=== PATIENT | female | born 1980 | race Caucasian/White ===

== ENCOUNTER 2021-10-13 16:16 | Emergency (ER) | payer OTHER, SELFPAY ==
[2021-10-13 16:24] VITALS: BP 214/103; PULSE 102; RESP 20; TEMP 37.2; O2SAT 100
[2021-10-13 16:30] VITALS: BP 180/90
--- NOTE | 2021-10-13 16:48 | ED.GENADULT ---
HPI - General Adult General Chief complaint: Unspecified Stated complaint: BP high Time Seen by Provider: 10/13/21 16:35 Source: patient Mode of arrival: ambulatory Limitations: no limitations History of Present Illness HPI narrative: Pooja is a 41-year-old female patient who ambulated into the [facility]. Patient states she was at the dental office for tooth extraction earlier and her blood pressure was 200/100. 183/103 with a automatic wrist cuff. In 193/108 with an automatic blood pressure cuff on the arm. Patient states this was the first time at this dentist and the dental assistant food service director told her her blood pressure was life-threatening. Patient has no health history. Patient was seen by her physician less than 6 months ago and had normal blood pressure. Patient has been taking amoxicillin for a broken wisdom tooth. Patient states she was anxious at the dentist it was a first time being there and she was upset that they stated they would not pull her tooth. Patient denies any headaches. Patient denies any blurred vision patient denies any numbness tingling to any of her extremities. MD complaint: anxiety Related Data Allergies Allergy/AdvReac Type Severity Reaction Status Date / Time No Known Drug Allergies Allergy Unknown Verified 03/19/14 18:08 Review of Systems Review of Systems: CONSTITUTIONAL: Denies body aches, fever, chills, or sweats. EYES: Denies visual changes, redness, or discharge. ENT: Denies rhinorrhea, congestion, sore throat, or otalgia. CARDIOVASCULAR: Denies chest pain, palpitations, or edema. RESPIRATORY: Denies cough or dyspnea. GASTROINTESTINAL: Denies abdominal pain, nausea, vomiting, or diarrhea. GENITOURINARY: Denies dysuria or hematuria. SKIN: Denies rash, itching, or wounds. MUSCULOSKELETAL: Denies back pain, joint pain, or myalgia. NEUROLOGIC: Denies headache, numbness, tingling, or weakness. PSYCH: Denies depression o+ anxiety. All systems reviewed & are unremarkable except as noted in HPI and below PMFSH Comments At time of signature, I have reviewed and agree with nursing past medical, surgical, social and family history unless otherwise noted. Please see nursing chart for further information. There is no relevant family history pertinent to the presenting complaint Exam Narrative: GENERAL: Well-appearing, well-nourished, and in no acute distress. HEAD: Normocephalic, atraumatic. EYES: EOMI. No redness or drainage. Conjunctivae normal. ENT: Mucous membranes pink and moist. Nares clear. No rhinorrhea. Uvula midline. NECK: Normal AROM. Supple. CHEST: No respiratory distress. ; Heart RRR no murmur or extra heart sounds MUSCULOSKELETAL: No bony tenderness. EXTREMITIES: Normal range of motion. No edema. SKIN: Warm, dry, no rash. Capillary refill normal. Normal skin turgor. NEURO: No focal deficits. Alert and oriented x3. Gait steady. PSYCH: Normal affect. No signs of depression or anxiety. Course Vital Signs Vital signs: Vital Signs Temperature 37.2 C 10/13/21 16:24 Pulse Rate 102 H 10/13/21 16:24 Respiratory Rate 20 10/13/21 16:24 Blood Pressure 214/103 H 10/13/21 16:24 Pulse Oximetry 100 10/13/21 16:24 Temperature 37.2 C 10/13/21 16:24 Pulse Rate 102 H 10/13/21 16:24 Respiratory Rate 20 10/13/21 16:24 Blood Pressure 180/90 H 10/13/21 16:30 Pulse Oximetry 100 10/13/21 16:24 Reviewed. Pt has been instructed to follow up with her PCP regarding her elevated blood pressure today. Medical Decision Making MDM Narrative Medical decision making narrative: Patient arrived very anxious. Manual blood pressure is 170/100. Patient denies any other symptoms. Patient had a doctor's visit 6 months ago with a normal blood pressure. Patient was instructed to follow-up with her primary care physician in the next week for her blood pressure.. Patient was instructed to go to the ER for any strokelike symptoms. Differential Diagnosis Differential Diagn
== END 2021-10-13 17:10 | disposition home or self-care (01) ==
PROVIDERS: Emergency Provider Nurse Practitioner Family; PCP Hospitalist
DX: I10 Essential (primary) hypertension (principal)
CPT/HCPCS: 99202; G0463

== ENCOUNTER 2025-10-11 08:17 | Emergency (ER) | payer OTHER, SELFPAY ==
[2025-10-11 08:22] VITALS: BP 135/75; PULSE 132; RESP 20; TEMP 37.9; O2SAT 97
--- OUTSIDE RECORDS SUMMARY | 2025-10-11 08:22 | XMS_ITS | Clinical Summary ---
Author Organization [facility] [address] [facility] lto Address [address] [place] [address] Care Team Providers Care Investment Consultant Name Role Phone Dillon Velázquez MD Primary Care Provider [phone] Allergies No known active allergies Medications etonogestreL (Nexplanon) 68 mg implant Nexplanon 68 MG Subcutaneous Implant QTY: 0 Days: 0 Refills: 0 Written: 05/05/20 Patient Instructions: inserted 05/05/20 L arm 0 Active lisinopriL (PRINIVIL,ZESTR IL) 40 mg tablet TAKE 1 TABLET(40 MG) BY MOUTH DAILY 90 tablet 3 3 Active amLODIPine (NORVASC) 5 mg tablet TAKE 1 TABLET(5 MG) BY MOUTH DAILY 90 tablet 3 3 Active Active Problems Problem Noted Date Diagnosed Date Jittery feeling 08/20/2022 Assessment & Plan (08/20/2022 10:20 AM ACQUISITIONS LIBRARIAN): Unclear etiology; patient reports difficulty with focus and generally; patient reports no caffeine intake, symptoms improved within 35-45 minutes, occurs about once per month Patient notes no other symptoms such as tachycardia or diarrhea Continue monitor, determine best testing to better characterize cause of symptoms RJ (obstructive sleep apnea) 11/29/2021 Assessment & Plan (12/07/2022 4:44 PM ACQUISITIONS LIBRARIAN): Stable, well controlled, continues to use CPAP regularly; no daytime sleepiness, headaches resolved Hypertension, essential 11/03/2021 Assessment & Plan (12/07/2022 4:44 PM ACQUISITIONS LIBRARIAN): Stable, well controlled; blood pressure at target; no chest pain or headaches, no episodes orthostatics since dose adjustment Continue lisinopril 40 mg daily, amlodipine 5 mg daily Assessment & Plan (08/20/2022 10:18 AM ACQUISITIONS LIBRARIAN): Stable, well controlled; blood pressure target with no orthostatics Continue lisinopril 40 mg daily, amlodipine 5 mg daily Assessment & Plan (02/01/2022 3:51 PM CDT): Stable, well controlled; blood pressure is at target, well controlled Patient reports no episodes of chest pain, headaches or orthostatics Continue amlodipine 10 mg daily, lisinopril 40 mg daily Assessment & Plan (11/03/2021 1:49 PM ACQUISITIONS LIBRARIAN): Stable, well controlled today; patient bp at target Plan: -continue with home monitoring; weekly checks while at store with bp cuff -continue amlodipine 10 mg, lisinopril 40 mg Left-sided chest pain 07/06/2021 Assessment & Plan (08/20/2022 10:19 AM ACQUISITIONS LIBRARIAN): Stabbing pain in nature; last for very short period, less than 1 minute, occurs with deep breaths in Low concern for cardiac source Assessment & Plan (07/06/2021 2:59 PM CDT): Inconsistent pain, dull aching radiating to back; mostly due to pressure on left side of chest; never occurs with activity Will continue to monitor, if pain continues, becomes more concerning or occurs with activity will get stress testing or further workup for cardiac source; at this time likely mechanical causes of chest pain Class 2 obesity due to exces s calories without serious comorbidity with body mass index (BMI) of 37.0 to 37.9 in adult 06/08/2021 Assessment & Plan (12/07/2022 4:44 PM ACQUISITIONS LIBRARIAN): Weight is stable from prior; patient reports previous weight loss, but recently loosen dietary restrictions and decreased exercise Patient returning to regular eating habits, no longer eating out or fast foods; generally eats healthy well around diet Patient targeting walking most days per week Assessment & Plan (08/20/2022 10:19 AM ACQUISITIONS LIBRARIAN): Stable, improving; continues to work on weight loss Encouraged dietary and activity changes for weight loss Assessment & Plan (02/01/2022 3:52 PM CDT): Stable, improving; patient has lost about 5 lb, the reports she has not had a plateau Patient has been a 0358-8011 calorie diet As patient difficulties with highly restrictive diets Encouraged patient to target sodium 1182-0729 calories per day Continue with regular exercise 7 days per week Will continue to follow-up patient evaluated patient would benefit from medical therapies if no improvement with dietary changes Assessment & Plan (11/03/2021 1:50 PM ACQUISITIONS LIBRARIAN): Discussed impotance of weight loss on blood pressure as well as other health risks. -continue with dietary changes; reducing fast food and high calorie food intake -continue with regular exercise, goal of 30 minutes of moderate intensity exercise 5 days per week Assessment & Plan (07/06/2021 2:58 PM CDT): Weight is stable, has decreased activity due to heat; has been playing golf and maintaining ordered work Encourage patient to continue with dietary changes and reduce portion sizes and avoid high-calorie foods such as sugars sweetened drinks Immunizations Immunization Administration Dates Next Due Influenza LAIV (Nasal) 12/07/2022(Deferred: Claudia ent Refused) Influenza, Unspecified 11/03/2021(Deferr ed: Patient Refused),10/20/2021(Deferred: Patient Refused),07/15/2021(Deferred: Patient Refused),06/08/2021(Deferred: Patient Refused),10/15/2020(Deferred: Patient Refused),10/15/2020(Deferred: Patient Refused),10/15/2020(Deferred: Patient Refused),07/15/2020(Deferred: Patient Refused),10/15/2019(Deferred: Patient Refused),10/15/2019(Deferred: Patient Refused) Pfizer SARS-CoV-2 Monovalent Vaccination (12+ Yrs) PURPLE 05/18/2021,02/01/2021 Surgical History Surgery Date Site/Laterality Comments NO PAST SURGERIES Medical History Medical History Date Comments Smoking Hypertension Family History Relation Name Status Comments Father Alive Mother Alive Social History Tobacco Use Types Packs/Day Years Used Date Smoking Tobacco: Former Cigarettes Q uit: 10/16/2021 Smokeless Tobacco: Never Tobacco Cessation:Counseling Given: No AUDIT-C Answer Date Recorded Q1: How often do you have a drink containing alc ohol? Never 12/07/2022 Average Number of Drinks Not on file 023 Frequency of Binge Drinking Not on file 11/16 PHQ-2 Answer Date Recorded PHQ-2 Total Score (If total score is 3 or more points, staff should administer the PHQ-9) 0 12/07/2022 Personal Safety Answer Date Recorded Getting School Help Needed Not on file 10/14 Comments No Sex and Gender Information Value Date Recorded Sex Assigned at Not on file Legal Sex Female 2:17 PM ACQUISITIONS LIBRARIAN Gender Identity Not on file Sexual Orientation Not on file Obstetrics History Para Term AB IAB SAB Ectopic Multiple Livin g Live Births 3 2 2 Date Outcome GA Total Labor Labor/2nd/3rd Weight Sex Type Anes PTL Chelsea A1 A5 Name Clin Term Term Last Filed Vital Signs Vital Sign Reading Time Taken Comments Blood Pressure 117/81 04/02/2023 2:10 PM CDT Pulse 79 04/02/2023 2:10 PM CDT Temperature 36.8 C (98.3 F) 12/07/2022 2:22 PM ACQUISITIONS LIBRARIAN Respiratory Rate 16 12/07/2022 2:22 PM ACQUISITIONS LIBRARIAN Oxygen Saturation 96% 04/02/2023 2:10 PM CDT Inhaled Oxygen Concentration - - Weight 91.4 kg (201 lb 9.6 oz) 04/02/2023 2:10 P M CDT Height 152.4 cm (5') 04/02/2023 2:10 PM CDT Body Mass Index 39.37 04/02/2023 2:10 PM CDT Plan of Treatment Health Maintenance Due Date Last Done Comments Cervical Cancer Screening 1979 Colon Cancer Screening-Colonoscopy 1979 Hepatitis C Screening 1979 Hepatitis B Screening 1997 Regular Well Visit/Exam 18-64 03/10/2022 03/10/2021 DTaP/Tdap/Td Vaccine (2 - Td or Tdap) 05/20/2022 05/20/2012 Depression Screening 12/07/2023 12/07/2022, 08/03/2022, 02/01/2022, Additional history exists Breast Cancer Screening-Mammogram 07/04/2024 07/04/2023, 07/03/2022, 06/30/2021 Covid-19 Vaccine (3 - season) 2025 05/18/2021, 02/01/2021 Influenza Vaccine (#1) 2025 HPV Vaccines Aged Out No longer eligi ble based on patient's age to complete this topic Pneumococcal vaccine <65 Aged Out No longer eligible based on patient's age to complete this topic Procedures Procedure Name Priority Date/Time Associated Diagnosis Comments SCREENING MAMMOGRAM BILATERAL W HERIBERTO Schedule Routine, Read Routine (OP Routine) 07/04/2023 1:31 PM CDT Encounter for screening mammogram for malignant neoplasm of breast from Last 3 Months or Most Recently Relevant to Health Maintenance Results * Screening Mammogram Bilateral W Heriberto (07/04/2023 1:31 PM CDT) Anatomical Region Laterality Modality Breast Bilateral Mammography 07/04/2023 2:09 PM CDT Impressions 07/04/2023 2:09 PM CDT There is no mammographic evidence of malignancy. A 1 year screening mammogram is recommended. BI-RADS: 1 - Negative. The patient has been or will be contacted. The patient will be entered into a reminder system with a target due date of 1 year for her next mammogram. Electronically signed by: Regina Ramon M.D. Narrative 07/04/2023 2:09 PM CDT EXAMINATION: SCREENING MAMMOGRAM BILATERAL W HERIBERTO ORDERING HEALTHCARE PROVIDER: YUNI LEA HISTORY: Routine screening mammography. COMPARISON: 07/03/2022, 06/30/2021, 03/25/2020 TECHNIQUE: CC and MLO views of the bilateral breasts were obtained with digital technique using breast tomosynthesis with C view. Computer aided detection was utilized. FINDINGS: DENSITY: There are scattered fibroglandular elements in the bilateral breasts. BREASTS: There are no suspicious masses, suspicious calcifications, or other suspicious findings in either breast. There has been no suspicious interval change. Yuni Lea ASSISTANT SECRETARY IMG MAMMO PROCEDURES Final Res ult from Last 3 Months or Most Recently Relevant to Health Maintenance Insurance [facility] Care Teams Investment Consultant Relationship Specialty Start Date End Date Dillon Veláz[place] [address] PCP - General Family Medicine 03/10/21
--- OUTSIDE RECORDS SUMMARY | 2025-10-11 08:22 | XMS_ITS | Data Portability ---
[facility] Address [address] [place] [address] Care Team Providers Care Nurse Transitional Name Role Phone JENNIFER CHAVEZ Primary Care Provider Assessment No assessment recorded. Plan of Treatment Reminders Order Date Submit Date Provider Last Modified By Organization Details Last Modified Time Details Appointments None recorded. Lab CBC 2024 025 [email or web address] [facility], [address] [place] [address], [place], [address], 5 10:13:36 CMP, serum or plasma 2024 025 [email or web address] [facility], [address] [place] [address], [place], [address], 5 10:13:36 lipid panel, serum 2024 025 [email or web address] [facility], [address] [place] [address], [place], [address], 5 10:13:36 HbA1c (hemoglobi n A1c), blood 2024 025 [email or web address] In-Office Order, Internal Use Only DO Not Attach Compendium DO Not Attach Compendium, Do Not Delete/merge, [id number] 5 15:03:45 rapid strep group A, throat 2023 024 [email or web address] In-Office Order, Internal Use Only DO Not Attach Compendium DO Not Attach Compendium, Do Not Delete/merge, [id number] 4 16:36:03 CBC 2023 024 [facility], [address] [place] [address] 2, [place], [address], 4 17:10:00 CMP, serum or plasma 2023 024 [facility], [address] [place] [address] 2, [place], [address], 4 17:09:58 lipid panel, serum 2023 024 [facility], [address] [place] [address] 2, [place], [address], 4 17:09:58 HbA1c (hemoglobi n A1c), blood 2023 024 [facility], [address] [place] [address] 2, [place], [address], 4 17:09:59 Referral None recorded. Procedures None recorded. Surgeries None recorded. Imaging None recorded. Medication Orders amlodipine 5 mg tablet 2024 025 [id number], [address], [place], [place], [id number], 5 14:52:38 lisinopril 40 mg tablet 2024 025 [facility], [address], [place], [place], [id number], 5 14:52:38 lisinopril 40 mg tablet 2023 024 [id number], [address], [place], [place], [id number], 4 15:19:33 amoxicilli n 875 mg tablet 2023 024 [id number], [address], [place], [place], [id number], 15:06:11 Patient TargetsNo targets recorded. Patient Instructions Encounter Date Encounter Id Patient Instructions Last Modified By Organization Details Last Modified Time 06/11/2024 [id number] sore throat: car e instructions jnanney Not available 06/11/2024 16:36:03 A healthy lifestyle: care instructions jnanney Not available 06/11/2024 16:36:26 learning about high blood pressure jnanney Not available 06/11/2024 16:40:24 10/06/2024 [id number] When You Want to Lose Weight: Care Instructions [email or web address] Not available 10/06/2024 15:19:25 04/30/2025 [id number] A healthy lifestyle: care instructions anney Not available 04/30/2025 14:52:33 Reason for Referral None Reported. Results Created Date Observation Date Name Description Value Unit Range Abnormal Flag Note LastModifiedBy Organization Detail LastModifiedTime 06/11/2006/13/2024 SPECI MEN STATU S REPOR T specimen status report TNP Test not perfo rmed. No laven adriana top tube submi tted. TEST: [id number] 2 CBC, Plate [place], [place] [id number] 3 Hemog lobin A1c Not Available [facility] & [address], [address], 06/13/2024 17:09:57 06/11/2006/13/2024 LIPID PANEL cholesterol, total 239 mg/dL 100-19 9 above high normal Not Available [facility] & [address], [address], 06/13/2024 17:09:57 06/11/2006/13/2024 LIPID PANEL triglyceride s 246 mg/dL 0-149 above high normal Not Available [address], [address], 06/13/2024 17:09:57 06/11/20 24 06/13/2024 LIPID PANEL HDL cholesterol 44 mg/dL >39 Not Available [address], [address], 06/13/2024 17:09:57 06/11/20 24 06/13/2024 LIPID PANEL VLDL cholesterol jonah 45 mg/dL 5-40 above high normal Not Available [address], [address], 06/13/2024 17:09:57 06/11/20 24 06/13/2024 LIPID PANEL LDL chol calc (nih) 150 mg/dL 0-99 above high normal Not Available [address], [address], 06/13/2024 17:09:57 06/11/20 24 06/13/2024 COMP. METAB OLIC PANEL (14) glucose 103 mg/dL 70-99 above high normal Not Available [address], [address], 06/13/2024 17:09:58 06/11/20 24 06/13/2024 COMP. METAB OLIC PANEL (14) BUN 13 mg/dL 6-24 Not Available [address], [address], 06/13/2024 17:09:58 06/11/20 24 06/13/2024 COMP. METAB OLIC PANEL (14) creatinine 0.94 mg/dL 0.57-1 .00 Not Available [address], [address], 06/13/2024 17:09:58 06/11/20 24 06/13/2024 COMP. METAB OLIC PANEL (14) eGFR 76 mL/mi n/1.7 3 >59 Not Available [address], [address], 06/13/2024 17:09:58 06/11/20 24 06/13/2024 COMP. METAB OLIC PANEL (14) BUN/creatini ne ratio 14 9-23 Not Available [address], [address], 06/13/2024 17:09:58 06/11/20 24 06/13/2024 COMP. METAB OLIC PANEL (14) sodium 137 mmol/ L 134-14 4 Not Available [address], [address], 06/13/2024 17:09:58 06/11/20 24 06/13/2024 COMP. METAB OLIC PANEL (14) potassium 4.5 mmol/ L 3.5-5. 2 Not Available [address], [address], 06/13/2024 17:09:58 06/11/20 24 06/13/2024 COMP. METAB OLIC PANEL (14) chloride 101 mmol/ L 96-106 Not Available [address], [address], 06/13/2024 17:09:58 06/11/20 24 06/13/2024 COMP. METAB OLIC PANEL (14) carbon dioxide, total 22 mmol/ L 20-29 Not Available [address], [address], 06/13/2024 17:09:58 06/11/20 24 06/13/2024 COMP. METAB OLIC PANEL (14) calcium 10.1 mg/dL 8.7-10 .2 Not Available [address], [address], 06/13/2024 17:09:58 06/11/20 24 06/13/2024 COMP. METAB OLIC PANEL (14) protein, total 8.0 g/dL 6.0-8. 5 Not Available [address], [address], 06/13/2024 17:09:58 06/11/20 24 06/13/2024 COMP. METAB OLIC PANEL (14) albumin 4.6 g/dL 3.9-4. 9 Not Available [address], [address], 06/13/2024 17:09:58 06/11/20 24 06/13/2024 COMP. METAB OLIC PANEL (14) globulin, total 3.4 g/dL 1.5-4. 5 Not Available [address], [address], 06/13/2024 17:09:58 06/11/20 24 06/13/2024 COMP. METAB OLIC PANEL (14) bilirubin, total 0.2 mg/dL 0.0-1. 2 Not Available [address], [address], 06/13/2024 17:09:58 06/11/20 24 06/13/2024 COMP. METAB OLIC PANEL (14) alkaline phosphatase 71 IU/L 44-121 Not Available [address], [address], 06/13/2024 17:09:58 06/11/20 24 06/13/2024 COMP. METAB OLIC PANEL (14) AST (SGOT) 20 IU/L 0-40 Not Available [address], [address], 06/13/2024 17:09:58 06/11/20 24 06/13/2024 COMP. METAB OLIC PANEL (14) ALT (SGPT) 19 IU/L 0-32 Not Available [address] [place], [address], 06/13/2024 17:09:58 06/11/20 24 06/13/2024 CARDI OVASC ULAR REPOR T interpretati on Note Medic al Dire tor's Note: Hemog lobin A1C-- TNP. Test not perfo rmed. No laven adriana top tube submi tted. Predi abete s: 5.7 - 6.4 Diabe peri: >6.4 Glyce zoraida contr ol for adult s with diabe peri: <7.0 Medic al Direc tor's Note: Speci men Statu s Repor t: TNP. Test not perfo rmed. No laven adriana top tube submi tted. TEST: [id number] 2 CBC, Plate let, [place] [address] 3 Hemog lobin A1c Suppl ement al repor t is avail able. Not Available [address], [address], 06/13/2024 17:09:59 06/11/20 24 06/13/2024 CARDI OVASC ULAR REPOR T pdf . Not Available [facility] & [address], [address], 06/13/2024 17:09:59 06/11/20 24 06/13/2024 HEMOG LOBIN A1C hemoglobin A1C - % Test not perfo rmed. No laven adriana top tube submi tted. Predi abete s: 5.7 - 6.4 Diabe peri: >6.4 Glyce zoraida contr ol for adult s with diabe peri: <7.0 Not Available [address], [address], 06/13/2024 17:09:59 06/11/20 24 06/13/2024 CBC, PLATE LET, NO DIFFE RENTI AL WBC - x10e3 /uL Test not perfo rmed. No laven adriana top tube submi tted. Not Available [facility] & [address], [address], 06/13/2024 17:10:00 06/11/20 24 06/13/2024 CBC, PLATE LET, NO DIFFE RENTI AL RBC - Test not perfo rmed Not Available [address], [address], 06/13/2024 17:10:00 06/11/2006/13/2024 CBC, PLATE LET, NO DIFFE RENTI AL hemoglobin - Test not perfo rmed Not Available [address], [address], 06/13/2024 17:10:00 06/11/20 24 06/13/2024 CBC, PLATE LET, NO DIFFE RENTI AL hematocrit - Test not perfo rmed Not Available [address], [address], 06/13/2024 17:10:00 06/11/20 24 06/13/2024 CBC, PLATE LET, NO DIFFE RENTI AL platelets - Test not perfo rmed Not Available [address], [address], 06/13/2024 17:10:00 06/11/20 24 06/13/2024 CBC, PLATE LET, NO DIFFE RENTI AL NRBC TNP % Test not perfo rmed. No laven adriana top tube submi tted. Not Available [address], [address], 06/13/2024 17:10:00 06/11/2006/11/2024 rapid strep group A, throa t Strep positi ve Not Available In-Office Order Internal Use Only DO Not Attach Compendium DO Not Attach Compendium, Do Not Delete/merge, [id number] 06/11/2024 16:24:51 04/30/20 25 04/30/2025 HbA1c (hemo globi n A1c), blood HbA1C 5.2 % Not Available In-Office Order Internal Use Only DO Not Attach Compendium DO Not Attach Compendium, Do Not Delete/merge, [id number] 04/30/2025 14:51:16 Result Notes None recorded. Medical Equipment None Reported. Allergies No known drug allergies Medications Name Sig Start Date Stop Date Status Note LastModified by Organization Details LastModified Time amlodipine 5 mg tablet Take 1 tablet every day by oral route for 90 days. 2024 active Not Available Not Available Not Avai lable amoxicillin 875 mg tablet TAKE 1 TABLET BY MOUTH EVERY 12 HOURS FOR 20 DAYS 10/06 completed Not Available Not Available Not Available lisinopril 40 mg tablet Take 1 tablet every day by oral route. 2024 active Not Available Not Available Not Avai lable Vitals Date Recorded Body height Body mass index (BMI) Body weight Oxygen saturation Heart rate Systolic And Diastolic Provider Name and Address Organization Details Last Updated DateTime 5 154.94 cm 37.4 kg/m2 18965.2 9 g 98 % 109 /min 119/80 mm[Hg] Laurel Hudson MA [facility] 5 14:21:56 Date Recorded Body weight Body mass index (BMI) Body height Oxygen saturation Heart rate Systolic And Diastolic Provider Name and Address Organization Details Last Updated DateTime 4 89850.7 4 g 36.3 kg/m2 154.94 cm 98 % 107 /min 124/91 mm[Hg] Carly Pereira MA [facility] 4 16:26:26 Date Recorded Body height Body mass index (BMI) Body weight Oxygen saturation Heart rate Systolic And Diastolic Provider Name and Address Organization Details Last Updated DateTime 4 154.94 cm 37 kg/m2 46166.1 g 99 % 87 /min 129/84 mm[Hg] Carly Pereira MA [facility] 4 15:07:25 Social History Question Answer Notes LastModified by Organizat ion Details LastModified Time Tobacco Smoking Status Former Smoker Carly Pereira MA null, [facility] 06/11/2024 16:23:21 Are You Blind Or Do You Have Difficulty Seeing? Yes Has Glasses Information not available 06/11/2024 What Is Your Level Of Caffeine Consumption? Moderate Information not available 06/11/2024 Are You Deaf Or Do You Have Serious Difficulty Hearing? No Information not available 06/11/2024 What Type Of Diet Are You Following? SPECIFIC Information not available 06/11/2024 Are There Any Guns Present In Your Home? No Information not available 06/11/2024 What Was The Date Of Your Most Recent Tobacco Screening? 04/30/2025 [email or web address] Information not available 04/30/2025 How Many Children Do You Have? 2 Information not available 06/11/2024 What Is Your Current Pack Years? 10-19packyea rs Information not available 06/11/2024 What Is Your Relationship Status? Information not available 06/11/2024 Do You Use Your Seat Belt Or Car Seat Routinely? Yes Information not available 06/11/2024 Do You Have Smoke And Carbon Monoxide Detectors In Your Home? Yes Information not available 06/11/2024 Are You Passively Exposed To Smoke? No Information not available 06/11/2024 How Much Tobacco Do You Smoke? 1 PPD Information not available 06/11/2024 Do You Use Sunscreen Routinely? Yes Information not available 06/11/2024 Has Tobacco Cessation Counseling Been Provided? No Information not available 06/11/2024 How Many Years Have You Smoked Tobacco? 15 Information not available 06/11/2024 Sex: Female Functional Status Question Answer Note LastModified by Organizat ion Details LastModified Time Do you use any illicit or recreational drugs? No Information not available 06/11/2024 Do you or have you ever used any other forms of tobacco or nicotine? No Information not available 06/11/2024 What is your level of alcohol consumption? None Information not available 06/11/2024 Are you currently employed? Yes Information not available 06/11/2024 Are you able to care for yourself independently? Yes Information not available 06/11/2024 What is your occupation? [employer] Information not available 06/11/2024 What is your exercise level? Moderate Information not available 06/11/2024 Mental Status Question Answer Note LastModified by Organization D etails LastModified Time Do you feel stressed (tense, restless, nervous, or anxious, or unable to sleep at night)? [id number] Information not available 06/11/2024 Family History Relationship Description Onset Age of this Age Resolved Age Notes LastModified by Organization Details LastModified Time Mother Hypertensive disorder [email or web address] Not available 2023 16:22:37 Father Hypertensive disorder kclarkma Not available 2023 16:22:40 Medical History Condition Response Coronary Artery Disease N Other N Atrial Fibrillation N High Blood Pressure N Thyroid Problems N Kidney or Bladder Problems N GI Problems N Depression N COPD N Blood Clots N Have you had a mammogram in the last yea r? N Eating Disorder N Skin Problems N Anemia N Heart Attack (MT) N Diabetes N Anxiety Disorder N Muscle, Joint, or Bone Problems N Seizures/Epilepsy N Have you had a colonoscopy in the last 1 0 years? N Arthritis N Acid Reflux (GERD) N Cancer N Stroke N Asthma N Allergies N Have you had a PSA blood test in the las t year? N ADHD N Substance Abuse N High Cholesterol N Hepatitis N Liver Disease N Schizophrenia N Headaches N Osteoporosis N Heart Failure N Gynecological History Statement/Question Response Menses Monthly Y Current Control Method Implant Flow Light Date of Last Mammogram Date of LMP Obstetrics History GPAL:G 2 P 2 0 0 0 Type Value Full Term 2 Total 2 Immunizations Vaccine Type Date Status Note Provider Nam e and Address Organization Details Recorded Time Tdap 05/20/2012 completed Not Available [facility] 04/30/2025 14:15:38 COVID-19, mRNA, LNP-S, PF, 30 mcg/0.3 mL dose 02/01/2021 completed Not Available [facility] 14:15:38 COVID-19, mRNA, LNP-S, PF, 30 mcg/0.3 mL dose 05/18/2021 completed Not Available [facility] 14:15:38 Past Encounters Encounter ID Performer Location Encounter Start Date Encounter Closed Date Diagnosis/Indication Diagnosis SNOMED-CT Code Diagnosis ICD10 Code Diagnosis IMO Codes Diagnosis Note [id number] ESTRADA Laws [address] [place] [address] 06/11/2024 16:09:25 06/13/2024 09:12:43 Sore throat 744576139 J02.9 Streptococ jonah sore throat 53773009 J02.0 Overweight 258987997 E66 .3 Essential hypertension 59201802 I10 [id number] Boni Tian MD [facility] [address] [place] [address] 10/06/2024 14:58:12 10/07/2024 09:55:11 Essential hypertension 30978109 I10 Mixed hyperlipidemia 267 882001 E78.2 Overweight 006119010 E66 .3 [id number] Boni Tian MD [facility] [address] [place] [address] 04/30/2025 14:13:44 05/01/2025 07:20:25 Essential hypertension 72994832 I10 18823 Obese class II 048995157 1 [address]194 E66.812 [id number] Health Concerns Section Related Observation LastModified by Organization Detai ls LastModified Time None Recorded Concern Status LastModified by Organization Details LastModified Time None Recorded Advance Directives Directive None Recorded Payers Insurance Date Sequence Insurance Name Policy Number Policy Simons Covered Member ID Simons Member ID Guarantor Name 04/30/2025 1 [facility] [place] Pooja Fajardo [id number] Pooja Fajardo Notes Date Note Type Note Provider Name and Address Organization Details Recorded Time 06/11/2024 text/html ROS as noted in the HPI was not feeling well..sore throat...not horrible but not right...also she has self reduced lisinopril from 40 to 20..no longer as active...no longer on amlodipine..is actively trying to lose weight... Jennifer Chavez PA-C Attn: Accounting,[address] [place], [address], [facility] 06/11/2024 16:41:43 10/06/2024 text/html ROS as noted in the HPI Htn...here to discuss labs..was on amlodipine along with lisinopril and she stopped amlodipine due to pressure being so good.. Jennifer Chavez PA-C Attn: Accounting,[address] [facility], [place], [address], [facility] 10/06/2024 15:20:39 04/30/2025 text/html ROS as noted in the HPI needs refills...also needs labs but wants to go out for it...discussed lipids...wants to see what this lab shows level...concerned with her weight..says she peaks and valleys alot... Jennifer Chavez PA-C Attn: Accounting,[address] [facility], [place], [address], [facility] 04/30/2025 14:54:27 OBGyn Episode No OBEpisode recorded.
--- NOTE | 2025-10-11 08:58 | ED.URI ---
HPI - URI/Sore Throat General Chief Complaint: Upper Respiratory Infection Stated Complaint: cough/throat/fever Time Seen by Provider: 10/11/25 08:45 Source: patient and RN notes reviewed Mode of arrival: ambulatory Limitations: no limitations History of Present Illness HPI Narrative: 45-year-old female presents Express Care complaining of upper respiratory symptoms for 2-3 days. Patient reports sore throat, cough, fevers, mild congestion. Patient reports a dry nonproductive cough. Patient denies any other upper respiratory symptoms, body ache,, chills, nausea vomiting, diarrhea, chest pain, difficulty breathing, any other symptoms. Patient reports her sore throat very painful reports of being is 7/10 currently. Patient denies any significant past medical problems other than hypertension. Related Data Home Medications ?Medication ?Instructions ?Recorded ?Confirmed ?Last Taken ?Type amlodipine 5 mg tablet mg 10/11/25 Unknown History etonogestrel subdermal 10/11/25 Unknown History lisinopril 40 mg tablet mg 10/11/25 Unknown History Allergies Allergy/AdvReac Type Severity Reaction Status Date / Time No Known Drug Allergies Allergy Unknown Unknown Verified 10/11/25 08:35 Review of Systems Review of Systems: CONSTITUTIONAL: Positive for fevers. Negative for body aches, chills, or sweats. EYES: Denies visual changes, redness, or discharge. ENT: Denies rhinorrhea, or otalgia. Positive for congestion and sore throat. CARDIOVASCULAR: Denies chest pain, palpitations, or edema. RESPIRATORY: Positive for cough. Negative for wheezing or Dyspnea. GASTROINTESTINAL: Denies abdominal pain, nausea, vomiting, or diarrhea. GENITOURINARY: Denies dysuria or hematuria. SKIN: Denies rash or itching. MUSCULOSKELETAL: Denies back pain, joint pain, or myalgia. NEUROLOGIC: Denies headache, numbness, or weakness. PSYCHIATRIC: Denies anxiety or depression. All other systems reviewed are negative, except as documented in HPI. PMFSH Comments At the time of my signature, I reviewed and agree with the nursing past medical, surgical, social, and family history. There is no relevant family history pertinent to the patient complaint. Exam Narrative: GENERAL: This is a well-nourished, well-developed adult, in no apparent distress. They are non ill-appearing, nontoxic appearing. HEAD: normocephalic, atraumatic. EYES: Sclera clear/white. Conjunctiva normal. Vision is grossly intact. Extraocular movements intact EARS: External ears normal, auditory canals clear and without drainage, TMs normal without perforation. Hearing grossly intact. NOSE: External nose normal with no obvious nasal discharge, nasal turbinates with erythema, no swelling, no rhinorrhea. THROAT: Mucous membranes moist, posterior pharynx erythematous. PND present. Uvula midline. NECK: Neck supple, mild tender cervical lymphadenopathy, no masses or thyromegaly. CARDIOVASCULAR: Regular rate and rhythm without murmurs, gallops, or rubs. RESPIRATORY: Clear to auscultation. Breath sounds equal bilaterally. No wheezes, rales, or rhonchi. SKIN: warm, Dry, intact with no suspicious lesions or rash, good texture and turgor. NEURO: awake, alert, and oriented to person, place and time. There were no obvious focal neurologic abnormalities. EXTREMITIES: No joint tenderness, effusion, or edema noted. BACK: Nontender without deformity. Course Course Level of Care: Express Care Visit Vital Signs Vital signs: Vital Signs Temperature 100.3 F H 10/11/25 08:22 Pulse Rate 132 H 10/11/25 08:22 Respiratory Rate 20 10/11/25 08:22 Blood Pressure 135/75 10/11/25 08:22 Pulse Oximetry 97 10/11/25 08:22 Oxygen Delivery Room Air 10/11/25 08:22 Temperature 100.3 F H 10/11/25 08:22 Pulse Rate 132 H 10/11/25 08:22 Respiratory Rate 20 10/11/25 08:22 Blood Pressure 135/75 10/11/25 08:22 Pulse Oximetry 97 10/11/25 08:22 Oxygen Delivery Room Air 10/11/25 08:22 [facility] MDM Narrative Medical decision making narrative: Rapid COVID, flu, strep were negative. A throat culture is pending. Given patient's severity of her sore throat give her course prednisone. Will prescribe her benzonatate tablets for cough. Symptoms likely viral in etiology. Discussed supportive care. Discussed physical exam findings. Advised supportive measures and signs/symptoms to go to the ER. Pt is appropriate for outpt treatment and f/u. Differential Diagnosis Differential Diagnosis: Differential diagnostic considerations for upper respiratory infection include upper respiratory infection, croup, otitis media, sinusitis, viral infection, bronchitis, influenza, pharyngitis, strep, uvulitis. Lab Data [facility] Lab Attestation statement: I personally reviewed the patient's lab results. Critical Care Time Critical Care Time Critical Care Time: No Discharge Plan Discharge Clinical Impression: Upper respiratory infection Qualifiers: URI type: unspecified viral URI Qualified Code(s): J06.9 - Acute upper respiratory infection, unspecified Patient Disposition: Home Condition: Stable Instructions: Antibiotic Form, Upper Respiratory Infection (ED) Additional Instructions: Your rapid COVID, flu, rapid strep swab was negative today at [facility]. You will be notified in a few days if the culture comes back positive for strep, and appropriate antibiotics will be called in for you at that time. Your symptoms are likely due to a viral illness, which is not treated with antibiotics. Viral symptoms can be present for up to 7-10 days. Take Tylenol or ibuprofen as needed for fever or pain. Follow instructions on the bottle. The prednisone as directed. Use benzonatate tablets as needed for cough. Rest and stay hydrated. Follow up with your PCP in 5-7 days if symptoms are not improving. Go to the ER immediately if you developed chest pain, vomiting, difficulty breathing or swallowing, or any serious concerns. Patient Language: Swedish Prescriptions: New benzonatate 200 mg capsule 200 mg PO TID PRN (Reason: cough) Qty: 20 0RF prednisone 20 mg tablet 40 mg PO DAILY 5 Days Qty: 10 0RF No Action amlodipine 5 mg tablet lisinopril 40 mg tablet etonogestrel [Nexplanon] subdermal Follow-up/Referrals: Kathy,SANDY Pringle [Primary Care Provider] Stand Alone Forms: Work/School Release IP Time of Disposition: 08:57
[2025-10-11 08:59] LABS: EDCOVIDSCREEN Negative (Negative); EDINFLUASCREEN Negative (Negative); EDINFLUBSCREEN Negative (Negative); EDSTREPNEGPOS1 Negative (Negative)
== END 2025-10-11 09:03 | disposition home or self-care (01) ==
PROVIDERS: PCP Physician Assistant
DX: J06.9 Acute upper respiratory infection, unspecified (principal); Z20.822 Contact with and (suspected) exposure to COVID-19; I10 Essential (primary) hypertension
CPT/HCPCS: 87081; 87426; 87804; 87880; 99213; G0463